=== PATIENT | male | born 1950 | race Caucasian/White ===

== ENCOUNTER 2016-04-21 19:18 | Emergency (ER) | payer MEDICARE ==
[~2016-04-21] VITALS: Ht 182.9 cm; Wt 61.5 kg
[~2016-04-21 19:18] MED LIST: IBUP-232 PO; NORC5TAB PO; ORPH100T PO
[2016-04-21 19:20] VITALS: BP 142/80; PULSE 96; RESP 18; TEMP 98.1; O2SAT 97
[2016-04-21] MEDS ORDERED: [UNRECOGNIZED DRUG - CODE] PO (19:54)
[2016-04-21] MEDS ORDERED: OXYM30TA3 PO (19:54)
--- NOTE | 2016-04-21 20:28 | PD ---
HPI Chief Complaint: Medication Refill Request Time Seen by Provider: 20:24 Travel History International Travel<30 days: No Contact w/Intl Traveler<30days: No Traveled to known affect area: No History of Present Illness HPI 65-year-old white male presents to emergency department requesting a refill of his opiates. He states that he has been in pain management for 15 years due to chronic back pain with right sciatica. He states that he was discharged from pain management because he was positive for marijuana on a drug screen. He states that he attempted to try to treat his pain with marijuana because he knew the marijuana bill had been passed. He states that he had a refill of medication in the last month. He has been out of his oxycodone in the last 2 days. He states that he started to get withdrawal symptoms. He states that he would like to get into another pain management doctor. He has not made an appointment with one yet. He admits to increasing pain in his lower back into his right leg. He also complains of mild nausea he associates with withdrawal. No fever chills. No vomiting. No abdominal pain. History Past Medical Histgory Narrative Medical Chronic back pain with opiate dependency Tetanus Vaccination: < 5 Years Past Surgical History Surgical History: No Previous Surgery Social History Alcohol Use: No Tobacco Use: No Allergies-Medications (Allergen,Severity, Reaction): Coded Allergies: E-Mycin (Verified Allergy, Mild, RASH, 04/21/16) Reported Meds & Prescriptions Reported Meds & Active Scripts Active Reported Oxymorphone ER 12 HR (Oxymorphone HCl) 30 Mg Tab 30 Mg PO Q12H PRN Hydromorphone HCl ER 8 mg (Hydromorphone HCl) 1 Tab Tab 8 Mg PO TID Review of Systems Except as stated in HPI: all other systems reviewed are Neg Physical Exam Narrative GENERAL: Well-developed, well-nourished in no acute distress. Nontoxic appearing. Patient resting comfortable in the examination room. He does not appear to be having any withdrawal symptoms at this time. He does not appear to be in any significant discomfort. He moves in the family initial room freely. He lists his legs on and off the bed in bends and moves without obvious discomfort. HEAD: Normocephalic, atraumatic. EYES: Pupils equal round and reactive. Extraocular motions intact. No scleral icterus. No injection or drainage. ENT: TMs clear without erythema. The external auditory canals clear. Nose: clear . Posterior pharynx is pink and moist. No tonsillar edema or exudate. Uvula midline. Airway patent. NECK: Trachea midline.Supple, nontender, moves head freely. No central bony tenderness or spasm. CARDIOVASCULAR: Regular rate and rhythm without murmurs, gallops, or rubs. RESPIRATORY: Clear to auscultation. Breath sounds equal bilaterally. No wheezes , rales, or rhonchi. GASTROINTESTINAL: Abdomen soft, non-tender, nondistended. No hepato-splenomegaly , or palpable masses. No guarding. EXTREMITIES: No clubbing, cyanosis, or edema. No joint tenderness, effusion, or edema noted. BACK: Nontender without deformity or crepitance. No flank tenderness. Data Data Last Documented VS Vital Signs Date Time Temp Pulse Resp B/P Pulse Ox O2 Delivery O2 Flow Rate FiO2 04/21/16 19:54 16 04/21/16 19:20 98.1 96 142/80 97 Orders Oxymorphone Sr (Opana Er) (04/21/16 20:45) MDM Medical Screen Exam Complete: Yes Emergency Medical Condition: Yes Differential Diagnosis MDM: High Differential diagnoses: Fracture, sprain, strain, HNP, chronic pain, substance abuse Narrative Course A medical screening exam was performed: At the time of evaluation the presenting medical condition was determined not to be of an emergent nature. The patient was given the option of receiving additional care, but declined. Patient was given options for additional community resources from which to obtain care. The Patient Has Been advised to seek medical attention for their presenting complaint. The patient has been advised to return to the ER at any time if an emergent condition develops. I informed the patient that I will not refill chronic narcotics to the ER today. If he opts to stay I will give him a one-time dose of opiates. I also offered him prescriptions for withdrawal. The patient is opted to stay. The patient is given a 30 mg OxyContin. Primary Impression: Chronic back pain Patient Instructions: General Instructions Med/Other Pt SpecificInfo: No Meds Exist/No RX given Disposition: 01 DISCHARGE HOME Condition: Stable Nelson Fletcher Apr 21, 2016 20:28
[2016-04-21] MEDS ORDERED: OXYMORPHONE 10 MG E.R. TAB PO ONE (20:45)
[2016-04-21 20:49] VITALS: BP 141/88; TEMP 98.5
== END 2016-04-21 21:05 | disposition home or self-care (01) ==
LOC: NEPB 19:18
DX: G89.29 Other chronic pain (principal); Z76.0 Encounter for issue of repeat prescription
CPT/HCPCS: 99281

== ENCOUNTER 2016-04-24 14:07 | Emergency (ER) | payer MEDICARE ==
[~2016-04-24] VITALS: Ht 182.9 cm; Wt 60.0 kg
[~2016-04-24 14:07] MED LIST changes: -IBUP-232 PO; -NORC5TAB PO; -ORPH100T PO; +OXYM30TA3 PO; +[UNRECOGNIZED DRUG - CODE] PO
[2016-04-24 14:09] VITALS: BP 115/67; PULSE 125; RESP 12; TEMP 98.1; O2SAT 96
== END 2016-04-24 16:23 | disposition left against medical advice (07) ==
LOC: NED 14:07
DX: Z02.89 Encounter for other administrative examinations (principal)
CPT/HCPCS: 99281

== ENCOUNTER 2016-04-27 05:19 | Emergency (ER) | payer MEDICARE ==
[~2016-04-27] VITALS: Ht 182.9 cm; Wt 63.0 kg
[2016-04-27 05:23] VITALS: BP 113/71; PULSE 105; RESP 20; TEMP 97.5; O2SAT 98
--- NOTE | 2016-04-27 05:38 | PD ---
HPI Chief Complaint: Pain: Acute or Chronic Time Seen by Provider: 05:38 Travel History International Travel<30 days: No Contact w/Intl Traveler<30days: No Traveled to known affect area: No History of Present Illness HPI 65-year-old male with history of low back pain and right sided sciatica persisting over the last 15 years resents the emergency department for the third time this week requesting Dilaudid for his low back pain. Patient states that he has been unable to get into pain management due to losing his ID. Reports no new injury. No focal deficits or weakness. No saddle paresthesia, loss of bowel or bladder, lower extremity weakness. No recent illnesses, fever , or chills. No other symptoms to report. PFSH Past Medical History Diminished Hearing: No Musculoskeletal: Yes (CHRONIC LEG/BACK) Social History Alcohol Use: No Tobacco Use: No Substance Use: No Allergies-Medications (Allergen,Severity, Reaction): Coded Allergies: E-Mycin (Verified Allergy, Mild, RASH, 04/27/16) Reported Meds & Prescriptions Reported Meds & Active Scripts Active Reported Oxymorphone ER 12 HR (Oxymorphone HCl) 30 Mg Tab 30 Mg PO Q12H PRN Hydromorphone HCl ER 8 mg (Hydromorphone HCl) 1 Tab Tab 8 Mg PO TID Review of Systems Except as stated in HPI: all other systems reviewed are Neg Physical Exam Narrative GENERAL: Well-nourished male patient, ambulatory and in no acute distress SKIN: Warm and dry. HEAD: Atraumatic. Normocephalic. EYES: Pupils equal and round. No scleral icterus. No injection or drainage. ENT: No nasal bleeding or discharge. Mucous membranes pink and moist. NECK: Trachea midline. No JVD. CARDIOVASCULAR : tachycardic rate and rhythm. No murmur appreciated. RESPIRATORY: No accessory muscle use. Clear to auscultation. Breath sounds equal bilaterally. GASTROINTESTINAL: Abdomen soft, non-tender, nondistended. Hepatic and splenic margins not palpable. MUSCULOSKELETAL: No obvious deformities. No clubbing. No cyanosis. No edema. No spinal tenderness. NEUROLOGICAL: Awake and alert. No obvious cranial nerve deficits. Motor grossly within normal limits. Normal speech. Data Data Last Documented VS Vital Signs Date Time Temp Pulse Resp B/P Pulse Ox O2 Delivery O2 Flow Rate FiO2 04/27/16 05:23 97.5 105 20 113/71 98 Room Air Orders Ketorolac Inj (Toradol Inj) (04/27/16 05:45) MDM Medical Decision Making Medical Screen Exam Complete: Yes Emergency Medical Condition: Yes Medical Record Reviewed: Yes Differential Diagnosis Sciatica versus acute exacerbation of chronic back pain versus withdrawal versus narcotic seeking Narrative Course 65-year-old male presents to emergency department for evaluation of right sciatic pain. This is persisted for 15 years. This is the third visit to the emergency department this week. When I informed the patient I would not be giving him any controlled substances outpatient, he told me that he was given 30 mg OxyContin on his last visit. I told him I would not be giving him that either and that narcotic medication is inappropriate treatment for chronic pain. I also advised that he work on getting and pain management since his pain has persisted so long. I explained to him that I would be giving him an anti-inflammatory medication. He asks me "that's it?" I have ordered the patient an injection of Toradol. He chooses to not take the Toradol and ambulates himself out of the emergency department. Diagnosis Primary Impression: Chronic back pain Qualified Code: M54.41 - Chronic right-sided low back pain with right-sided sciatica Additional Impression: Narcotic dependence Med/Other Pt SpecificInfo: No Change to Meds Disposition: 07 AGAINST MEDICAL ADVICE Condition: Stable Isabelle Porter Apr 27, 2016 05:38
[2016-04-27] MEDS ORDERED: KETOROLAC TROMETHAMINE 60 MG/2 ML (IM) VIAL IM ONE (05:45)
== END 2016-04-27 05:44 | disposition left against medical advice (07) ==
LOC: NEPB 05:19
DX: M54.5 Low back pain (principal); F11.20 Opioid dependence, uncomplicated
CPT/HCPCS: 99283

== ENCOUNTER 2016-05-06 01:52 | Emergency (ER) | payer MEDICARE ==
[~2016-05-06] VITALS: Ht 182.9 cm; Wt 63.0 kg
[2016-05-06 01:54] VITALS: BP 130/83; PULSE 102; RESP 18; TEMP 98; O2SAT 98
--- NOTE | 2016-05-06 02:16 | PD ---
HPI Chief Complaint: Medical Clearance Time Seen by Provider: 02:11 Travel History International Travel<30 days: No Contact w/Intl Traveler<30days: No Traveled to known affect area: No History of Present Illness HPI Patient comes in requesting narcotic pain medication. Patient states he was in pain management however he has not seen his pain management doctor in about 2 months and feels like he is going through withdrawals. Patient states he has been out of his Dilaudid and oxycodone for over a month and has had not had any narcotics for at least 36 hours. Patient states he is on narcotics for his chronic neck pain and sciatica. Patient states he was seeing pain management in [facility] and is scheduled to get in with a new pain management doctor but is requesting some type of narcotic to help him until he can get in with a new pain management. Patient denies any new symptoms. Denies any fevers , IV drug use, loss or change in bowel or bladder, or numbness or tingling anywhere. Reports pain in his back this same chronic pain he's been taking the pain medication for. History Social History Alcohol Use: No Tobacco Use: No Allergies-Medications (Allergen,Severity, Reaction): Coded Allergies: E-Mycin (Verified Allergy, Mild, RASH, 05/06/16) Reported Meds & Prescriptions Reported Meds & Active Scripts Active Reported Oxymorphone ER 12 HR (Oxymorphone HCl) 30 Mg Tab 30 Mg PO Q12H PRN Hydromorphone HCl ER 8 mg (Hydromorphone HCl) 1 Tab Tab 8 Mg PO TID Review of Systems Except as stated in HPI: all other systems reviewed are Neg Physical Exam Narrative GENERAL: Well-developed, well nourished, in no acute distress, and non-ill appearing. SKIN: Warm and dry. HEAD: Atraumatic. Normocephalic. EYES: Pupils equal and round. EOMI. No scleral icterus. No injection or drainage. ENT: No nasal bleeding or discharge. Mucous membranes pink and moist. NECK: Trachea midline. Supple. No nuclear rigidity. CARDIOVASCULAR: Regular rate and rhythm. No murmur appreciated. RESPIRATORY: No accessory muscle use. No respiratory distress. GASTROINTESTINAL: Abdomen soft, non-tender, nondistended. Hepatic and splenic margins not palpable. Normal bowel sounds 4. No pulsatile mass. MUSCULOSKELETAL: No obvious deformities. No clubbing. No cyanosis. No edema. Full range of motion. Normal gait. Negative straight leg test bilaterally. No tenderness or crepitus over midline of the lumbar spine. No perivertebral spinal muscle tenderness of the lumbar spine. NEUROLOGICAL: Awake and alert. No obvious cranial nerve deficits. Motor grossly within normal limits. Normal speech. PSYCHIATRIC: Appropriate mood and affect; insight and judgment normal. Data Data Last Documented VS Vital Signs Date Time Temp Pulse Resp B/P Pulse Ox O2 Delivery O2 Flow Rate FiO2 05/06/16 01:54 98.0 102 18 130/83 98 MDM Medical Screen Exam Complete: Yes Emergency Medical Condition: No Narrative Course History and physical exam findings are not consistent with an emergent medical condition. He was given the option of receiving additional care, but has declined. Therefore the appropriate counseling recommendations were discussed with the patient and he was instructed to follow-up with his primary care physician as soon as possible for reevaluation. Patient was also informed of community resources from which he can obtain additional care. He is agreeable and verbalizes an understanding of the proposed plan. The patient states he will immediately return to the emergency department if his current complaints do not improve, new symptoms arise, or emergent condition develops. Patient ambulated out of the emergency department without difficulty. Primary Impression: Encounter for medical screening examination Disposition: [facility]GO-ED USE ONLY Condition: Stable Reagan Eason May 06, 2016 02:16
== END 2016-05-06 02:11 | disposition left against medical advice (07) ==
LOC: NEPB 01:52
DX: M54.2 Cervicalgia (principal)
CPT/HCPCS: 99281